=== PATIENT | female | born 1930 | race Caucasian/White ===

== ENCOUNTER 2017-07-23 18:45 | Observation (INO) | payer MEDICARE, OTHER ==
--- NOTE | 2017-07-23 19:11 | ED Physician Documentation ---
General Adult - HISTORIAN Historian: patient - HPI Chief Complaint: General Adult Onset: days ago (10 days) Timing: still present Severity: moderate Context: Started after traveling home from [place] Location: RLE[place]LLE Further Comments: yes - ROS CONST: no problems. denies: fever, chills CVS/RESP: chest pain, cough (nonproductive) MS/SKIN/LYMPH: calf pain (mild), other (low back pain) NEURO/PSYCH: denies: headache, fainting, dizziness - PAST HX Past History: other (Hypertension, Sick sinus syndrom, hypothyroidism, OA) Surgeries/Procedures: hysterectomy (partial), other (C section, carpal tunnel release, detached retina repair, Left TKR) Allergies/Adverse Reactions: Allergies Allergy/AdvReac Type Severity Reaction Status Date / Time cefaclor [From Ceclor] Allergy Unknown Verified 07/23/17 19:10 propoxyphene HCl Allergy Unknown Verified 07/23/17 19:10 [From Darvon] Sulfa (Sulfonamide Allergy Verified 07/23/17 19:10 Antibiotics) Home Medications: Ambulatory Orders Medication Instructions Recorded Cholecalciferol [Vitamin D-3] 1,000 mg PO DAILY 01/31/14 Dickson-3S/Dha/Epa/Fish Oil [Fish 1 each PO DAILY 01/31/14 Oil EC 1,200 mg Softgel] Furosemide [Furosemide] 40 mg PO BID 02/13/16 Metoprolol Tartrate [Lopressor] 25 mg PO DAILY 02/13/16 - SOCIAL HX Smoking History: non-smoker Alcohol Use: none Drug Use: none - FAMILY HX Family History: Yes (CAD) - VITAL SIGNS Vital Signs: Vital Signs Temp Pulse Resp BP Pulse Ox 168/70 02/13/16 19:14 - REVIEWED ASSESSMENTS Nursing Assessment Reviewed: Yes Vitals Reviewed: Yes ED Results Lab/Radiology - Radiology Radiology Impressions: Examination: PA and lateral chest. History: Evaluate lung cardona. Comparison exams: None available Findings: PA lateral chest demonstrates a prominent cardiac silhouette. Tortuosity of the thoracic aorta with vascular calcifications involving the aortic arch. Mildly prominent hilar vasculature. Chronic appearing interstitial changes. No blunting of the costophrenic margins. No focal infiltrate. No effusion. Osseous structures are appropriate for age. Impression: Chronic appearing interstitial changes. Cardiomegaly. No acute pulmonary process. Correlate with older studies when available. General Adult Physical Exam - PHYSICAL EXAM GENERAL APPEARANCE: mild distress EENT: eye inspection normal, ENT inspection normal, pharynx normal, no signs of dehydration NECK: normal inspection, thyroid normal, supple RESPIRATORY: no resp distress, chest non-tender, breath sounds normal. No: wheezes, rales, rhonchi CVS: reg rate & rhythm, heart sounds normal, equal pulses, no murmur, no gallop ABDOMEN: soft, no distension BACK: normal inspection, no CVA tenderness SKIN: warm/dry, normal color EXTREMITIES: other (4 plus edema with weeping bilaterally, R>L, mild posterior calf tenderness) NEURO: oriented X3, mood/affect nml, cognition normal Discharge Clincal Impression: Pedal edema Home Medications: Ambulatory Orders Cholecalciferol [Vitamin D-3] 1,000 mg PO DAILY 01/31/14 Dickson-3S/Dha/Epa/Fish Oil [Fish Oil EC 1,200 mg Softgel] 1 each PO DAILY Furosemide [Furosemide] 40 mg PO BID 02/13/16 Metoprolol Tartrate [Lopressor] 25 mg PO DAILY 02/13/16 Condition: Stable Disposition: ADMITTED INPATIENT Decision to Admit: [id number] Date of Decison to Admit: 07/23/17 Decision Time: 21:12
[2017-07-23] MEDS ORDERED: FUROSEMIDE 40 MG/4 ML VIAL IVP ONE (19:30)
[2017-07-23] MEDS ORDERED: DIGOXIN 250MCG/1ML IVP ONE (19:31)
[2017-07-23 19:55] LABS: BASOPHILS % 0.8 (0.0-1.5); EOSINOPHILS % 3.8 % (0.0-6.8); MEAN CORPUSCULAR HEMOGLOBIN 29.5 pg (28.0-34.0); MEAN CORPUSCULAR VOLUME 89.2 fl (80.0-100.0); MONOCYTES % 6.8 % (0.0-11.0); NEUTROPHILS # 4.5 # k/uL (1.4-7.7)
[2017-07-23 20:07] LABS: eGFR (African) > 60; eGFR (Non-African) > 60
[2017-07-23] MEDS ORDERED: LORazepam 0.5 MG TABLET PO PRN (21:25)
[2017-07-23] MEDS ORDERED: LEVOTHYROXINE SODIUM 25 MCG TABLET PO SCH (22:00)
[2017-07-23] MEDS ORDERED: METOPROLOL TARTRATE 50 MG TABLET PO SCH ×2 (22:00→22:30)
[2017-07-23] MEDS ORDERED: MULTIVITAMIN 1 EACH TABLET PO SCH (22:00)
[2017-07-23] MEDS ORDERED: PRESERVISION PO SCH ×3 (22:24→22:33)
[2017-07-23] MEDS ORDERED: DOXAZOSIN MESYLATE 2 MG TABLET PO SCH (22:31)
[2017-07-23] MEDS ORDERED: ASPIRIN 81 MG CHEW TAB PO SCH ×2 (22:32→23:00)
[2017-07-23] MEDS ORDERED: ASPIRIN EC 81 MG TABLET.DR ONE (22:38)
[2017-07-23] MEDS: POTASSIUM CHLORIDE 10 MEQ TABLET.ER PO SCH (22:44)
[2017-07-24 00:26] VITALS: BMI 36.7
[2017-07-24 05:42] LABS: APPEARANCE,URINE CLEAR (CLEAR); COLOR,URINE YELLOW (YELLOW); OCCULT BLOOD,URINE NEGATIVE (NEGATIVE); UROBILINOGEN URINE 0.2 Eu (0.2-1.0)
[2017-07-24] MEDS: FUROSEMIDE 40 MG/4 ML VIAL IVP SCH ×2 (06:04→14:17)
[2017-07-24 06:46] LABS: BASOPHILS % 1.1 (0.0-1.5); EOSINOPHILS % 4.7 % (0.0-6.8); MEAN CORPUSCULAR HEMOGLOBIN 29.5 pg (28.0-34.0); MEAN CORPUSCULAR VOLUME 90.1 fl (80.0-100.0); MONOCYTES % 6.1 % (0.0-11.0); NEUTROPHILS # 3.6 # k/uL (1.4-7.7)
--- NOTE | 2017-07-24 06:51 | Diagnostic Imaging Report ---
ELYSIA ALVARENGA [facility] [address] [facility].[address] [address] Report Submission Date: Jul 23, 2017 8:15:49 PM CDT Patient Study Name: JORDAN JACOBSON Date: Jul 23, 2017 7:54:11 PM CDT Modality Type: CR Gender: F Description: CHEST : [birth year] Institution: [facility] Physician: ELYSIA ALVARENGA Examination: PA and lateral chest. History: Evaluate lung cardona. Comparison exams: None available Findings: PA lateral chest demonstrates a prominent cardiac silhouette. Tortuosity of the thoracic aorta with vascular calcifications involving the aortic arch. Mildly prominent hilar vasculature. Chronic appearing interstitial changes. No blunting of the costophrenic margins. No focal infiltrate. No effusion. Osseous structures are appropriate for age. Impression: Chronic appearing interstitial changes. Cardiomegaly. No acute pulmonary process. Correlate with older studies when available. Electronically signed on Jul 23, 2017 8:15:49 PM CDT by: Riccardo GUZMÁN
[2017-07-24] MEDS ORDERED: LEVOTHYROXINE SODIUM 25 MCG TABLET PO SCH (07:00)
[2017-07-24] MEDS ORDERED: FUROSEMIDE 40 MG/4 ML VIAL IVP SCH (09:00)
[2017-07-24] MEDS ORDERED: POTASSIUM CHLORIDE 10 MEQ TABLET.ER PO SCH (09:00)
[2017-07-24] MEDS ORDERED: LISINOPRIL 20 MG TABLET PO SCH (09:00)
[2017-07-24] MEDS ORDERED: amLODIPine BESYLATE 5 MG TABLET PO SCH ×2 (09:00)
[2017-07-24] MEDS ORDERED: DOXAZOSIN MESYLATE 2 MG TABLET PO SCH (09:00)
[2017-07-24] MEDS ORDERED: APIXABAN 2.5 MG TABLET PO SCH (09:00)
[2017-07-24] MEDS ORDERED: PRESERVISION PO SCH (09:00)
[2017-07-24] MEDS ORDERED: CHOLECALCIFEROL 1,000 UNIT TABLET PO SCH (09:00)
[2017-07-24] MEDS ORDERED: MULTIVITAMIN 1 EACH TABLET PO SCH (09:00)
[2017-07-24] MEDS ORDERED: SALINE FLUSH 10 ML DISP.SYRIN IVF ONE (09:31)
[2017-07-24 09:43] VITALS: BP 124/56
--- NOTE | 2017-07-24 09:48 | Discharge Summary ---
Discharge Summary - Discharge Sumary History of Present Illness: Patient is an 87-year-old white female who status is not having some pedal edema approximately 10 days ago after she returned from a long trip from [place]. Patient states that she is not having some increased swelling in the right lower leg compared to the left. Patient states that her right leg is always swollen slightly more than the left. Patient started having some Weeping and be became concerned and subsequently came to the emergency room for evaluation. Patient's accomplice to the right leg appear to be 2 to 3 cm greater than the left. Patient was subsequently admitted for possible DVT and was started on and gratulation therapy until a ultrasound could be obtained of the deep veins. Condition at Discharge: Stable Home Medications: Ambulatory Orders Medication Instructions Recorded Cholecalciferol [Vitamin D-3] 1,000 mg PO DAILY 01/31/14 Keeling-3S/Dha/Epa/Fish Oil [Fish 1 each PO DAILY 01/31/14 Oil EC 1,200 mg Softgel] Furosemide 40 mg PO BID 02/13/16 Metoprolol Tartrate [Lopressor] 25 mg PO DAILY 02/13/16 Allergies/Adverse Reactions: Allergies Allergy/AdvReac Type Severity Reaction Status Date / Time cefaclor [From Ceclor] Allergy Unknown Verified 07/23/17 19:10 propoxyphene HCl Allergy Unknown Verified 07/23/17 19:10 [From Darvon] Sulfa (Sulfonamide Allergy Verified 07/23/17 19:10 Antibiotics) Patient Problems: Current Active Problems Problem Status Onset Pedal edema Acute Discharge Summary: Patient was started on Eliquis 5 mg. Patient was started on external compression to the lower extremity bilaterally. Patient chest x-ray showed some chronic interstitial changes but no acute congestive heart failure changes. Patient did have an elevated dimer but due to her elevated creatinine a CT scan of the chest with month and. At the time of discharge patient pedal edema was improved some. Ultrasound of the ED venous system was negative for any clots or occlusions.Patient was discharged home in stable condition. - Final Diagnosis (1) Pedal edema Problems: Patient will have Lasix increased up to BID. (2) Congestive heart failure Problems: stable
[2017-07-24] MEDS: POTASSIUM CHLORIDE 10 MEQ TABLET.ER PO SCH (10:21)
--- NOTE | 2017-07-24 11:13 | Diagnostic Imaging Report ---
[facility] [address] [facility].[address] [address] Report Submission Date: Jul 24, 2017 9:50:31 AM CDT Patient Study Name: JORDAN JACOBSON Date: Jul 24, 2017 9:14:04 AM CDT Modality Type: US Gender: F Description: BILAT US DVT : [birth year] Institution: [facility] Physician: [facility] Examination: Ultrasound vein History: Leg swelling. Findings: Sonographic evaluation of the lower extremity venous system from the groin to the popliteal fossa inclusive bilaterally. Normal compressibility. No luminal filling defect. Normal waveforms and response to augmentation. No popliteal region fluid collection. Impression: No evidence for deep venous thrombosis. Electronically signed on Jul 24, 2017 9:50:31 AM CDT by: Riccardo GUZMÁN
[2017-07-24] MEDS ORDERED: METOPROLOL TARTRATE 50 MG TABLET PO SCH (21:00)
[2017-07-24] MEDS ORDERED: METOPROLOL TARTRATE 25 MG TABLET PO SCH (21:00)
== END 2017-07-24 13:55 | disposition home or self-care (01) ==
LOC: ED 18:45 → SOUTH 21:07
PROVIDERS: ADMIT Family Medicine; ATTEND Family Medicine
DX: I50.20 Unspecified systolic (congestive) heart failure (principal); R60.0 Localized edema
CPT/HCPCS: 36415; 71020; 80053; 81002; 85025; 85379; 85610; 93970; G0378; J1940; 96374; 96375; 99284; S1016

== ENCOUNTER 2017-08-09 14:18 | Outpatient (CLI) | payer MEDICARE, OTHER | END 2017-08-09 14:20 | LOC: LAB 14:18 | PROVIDERS: ATTEND Family Medicine | DX: E03.9 Hypothyroidism, unspecified (principal) | CPT/HCPCS: 36415; 84443 ==

== ENCOUNTER 2018-03-07 14:24 | Outpatient (CLI) | payer MEDICARE, OTHER ==
--- NOTE | 2018-03-07 20:46 | Diagnostic Imaging Report ---
ELYSIA ALVARENGA~ [facility] [address] [facility].[address] [address] ~ ~ ~ ~ Report Submission Date: Mar 07, 2018 3:56:08 PM CDT Patient ~ Study Name: JORDAN JACOBSON ~ Date: Mar 07, 2018 3:25:56 PM CDT ~ Modality Type: DX Gender: F ~ Description: LOWER EXTREMITY : [birth year] ~ Institution: [facility] Physician: ELYSIA ALVARENGA ~ ~ ~ Examination: Plain film left knee History: MEDIAL KNEE PAIN X 4 MONTHS FROM STRAIN WITH HX OF KNEE REPLACEMENT IN 2007 (Hx) Findings:~3 views of the left knee demonstrates knee replacement in place. No fracture loosening.~ No dislocation. No joint effusion. No soft tissue irregularity. Posterior vascular calcifications. Impression: Knee replacement in place. No evidence for fracture or loosening. ~ Electronically signed on Mar 07, 2018 3:56:08 PM CDT by: Riccardo GUZMÁN
== END 2018-03-07 14:25 ==
LOC: RAD 14:24
PROVIDERS: ATTEND Family Medicine
DX: M17.10 Unilateral primary osteoarthritis, unspecified knee (principal); M25.562 Pain in left knee
CPT/HCPCS: 73562

== ENCOUNTER 2018-07-04 09:37 | Outpatient (CLI) | payer MEDICARE, OTHER ==
[2018-07-04 10:30] LABS: BASOPHILS % 0.9 (0.0-1.5); EOSINOPHILS % 2.8 % (0.0-6.8); MEAN CORPUSCULAR HEMOGLOBIN 29.9 pg (28.0-34.0); MEAN CORPUSCULAR VOLUME 91.4 fl (80.0-100.0); NEUTROPHILS # 3.5 # k/uL (1.4-7.7)
== END 2018-07-04 09:40 ==
LOC: LAB 09:37
PROVIDERS: ATTEND Family Medicine
DX: E03.9 Hypothyroidism, unspecified (principal); I10 Essential (primary) hypertension; R53.82 Chronic fatigue, unspecified
CPT/HCPCS: 80053; 80061; 84443; 85025

== ENCOUNTER 2018-08-16 14:42 | Outpatient (CLI) | payer MEDICARE, OTHER ==
[2018-08-16 15:41] LABS: eGFR (Non-African) > 60
[2018-08-16 21:41] LABS: BASO % 1.1 % (0.0-1.5); EOS % 2.4 % (0.0-6.8); LYMPH ABS # 0.98 thou/uL (0.60-4.00); MCH. 29.1 pg (28.0-34.0); MCV 87.6 fL (80.0-100.0); MONOCYTE % 7.6 % (0.0-11.0); MONOCYTE ABS # 0.46 thou/uL (0.00-0.90); PLATELET COUNT 188 thou/uL (130-400)
== END 2018-08-16 14:43 ==
LOC: LAB 14:42
PROVIDERS: ATTEND Physician Assistant
DX: M79.89 Other specified soft tissue disorders (principal); R53.83 Other fatigue
CPT/HCPCS: 36415; 80053; 85025

== ENCOUNTER 2019-03-06 14:09 | Emergency (ER) | payer MEDICARE, OTHER ==
[2019-03-06 14:27] VITALS: BP 172/65
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
--- NOTE | 2019-03-06 15:06 | Diagnostic Imaging Report ---
JOHN PAUL QUINONEZ [facility] [address] [facility] [address] [address] Report Submission Date: Mar 06, 2019 3:05:16 PM CDT Patient Study Name: JORDAN JACOBSON Date: Mar 06, 2019 2:35:45 PM CDT Modality Type: DX Gender: F Description: RT HIP 2VIEW COMPLETE : [birth year] Institution: [facility] Physician: JOHN PAUL QUINONEZ Examination: Plain film right hip History: RT HIP PAIN AFTER FALL TODAY Comparison exams: None provided Findings: 2 views of the right hip demonstrates osteopenia. Mild joint space narrowing and ossific spurring. No cortical disruption. No soft tissue abnormality. Impression: Osteopenia and degenerative changes. No acute appearing osseous abnormality. Electronically signed on Mar 06, 2019 3:05:16 PM CDT by: Riccardo GUZMÁN
== END 2019-03-06 15:20 | disposition home or self-care (01) ==
LOC: ED 14:09
DX: M25.551 Pain in right hip (principal); V00.831A Fall from motorized mobility scooter, initial encounter; Y93.89 Activity, other specified; Y92.007 Garden or yard of unspecified non-institutional (private) residence as the place of occurrence of the external cause
CPT/HCPCS: 73502; 99282; 99283